=== PATIENT | female | born 1955 | race Caucasian/White ===

== ENCOUNTER 2022-09-02 00:12 | Observation (INO) | payer MEDICARE, OTHER ==
[~2022-09-02] VITALS: Ht 165.1 cm; Wt 99.8 kg
[2022-09-02 00:39] LABS: POTASSIUM 4.1 mmol/L (3.5-5.1)
[2022-09-02 00:44] LABS: ALBUMIN 3.6 g/dL (3.5-5.0); TOTAL PROTEIN, SERUM 7.2 g/dL (6.0-8.3)
[2022-09-02 00:46] LABS: HEMATOCRIT 32.3 % (36-48); MEAN CORPUSCULAR HEMOGLOBIN 27.6 pg (27.0-33.0); MEAN CORPUSCULAR HGB CONC 31.3 g/dL (32.0-36.0); MEAN CORPUSCULAR VOLUME 88.3 fL (79-99); RED BLOOD CELL COUNT(AUTO) 3.66 MIL/uL (4.00-5.50); RED CELL DISTRIBUTION WIDTH 14.1 % (11.0-15.5); WHITE BLOOD COUNT (AUTO) 19.6 K/uL (4.8-10.8)
[2022-09-02] MEDS ORDERED: PANTOPRAZOLE 40 MG/VIAL ONE (01:18)
[2022-09-02] MEDS: PANTOPRAZOLE 40MG INJ 80 MG in 0.9%NACL 100ML 100 ML IV SCH ×3 (01:22→23:27)
[2022-09-02 01:26] LABS: INR 0.95 (0.85-1.15); PROTHROMBIN TIME 10.4 SEC (9.6-11.6)
[2022-09-02 01:27] LABS: PARTIAL THROMBOPLASTIN TIME 21.9 SEC (26.3-35.5)
[2022-09-02] MEDS ORDERED: IOHEXOL 350 MG/ML 100ML INFUS..BTL IV ONE (01:30)
[2022-09-02] MEDS ORDERED: ONDANSETRON 4MG INJ IV PRN (04:00)
[2022-09-02] MEDS ORDERED: MORPHINE 4 MG SYG IV PRN (04:00)
[2022-09-02] MEDS ORDERED: MORPHINE 2 MG SYG IV PRN (04:00)
[2022-09-02] MEDS ORDERED: ACETAMINOPHEN 325 MG TAB PO PRN ×2 (04:00)
[2022-09-02] MEDS ORDERED: OCTREOTIDE ACETATE 1,250 MCG in 0.9% NACL 250ML 250 ML IV SCH (04:00)
[2022-09-02] MEDS ORDERED: OCTREOTIDE ACETATE 100 MCG/ML AMP IV ONE (04:00)
[2022-09-02 04:11] LABS: APPEARANCE,URINE CLEAR (CLEAR); BILIRUBIN,URINE NEGATIVE (NEGATIVE); COLOR,URINE COLORLESS (YELLOW); GLUCOSE, URINE (UA) NEGATIVE (NEGATIVE); KETONES,URINE NEGATIVE (NEGATIVE); LEUKOCYTE ESTERASE ,URINE NEGATIVE Leu/uL (NEGATIVE); NITRATE,URINE NEGATIVE (NEGATIVE); OCCULT BLOOD,URINE NEGATIVE (NEGATIVE); PH,URINE 5.5 (5.0-8.0); PROTEIN,URINE 20 mg/dL (NEGATIVE); UROBILINOGEN,URINE 0.2 mg/dL (0.2-1.0)
[2022-09-02] MEDS ORDERED: OCTREOTIDE ACETATE 200 MCG/ML 5 ML VIAL ONE (04:20)
[2022-09-02] MEDS: 0.9%NACL 1000ML 1,000 ML IV SCH ×2 (04:49→20:40)
[2022-09-02] MEDS: ZOSYN 3.375GM +NS 50ML IVPB SCH ×3 (04:50→20:37)
[2022-09-02] MEDS: 0.9%NACL 50ML IV SCH ×3 (04:50→20:37)
[2022-09-02] MEDS ORDERED: ZOSYN 3.375GM+NS 50ML 50 ML IVPB SCH (05:00)
[2022-09-02 05:17] LABS: BACTERIA,URINE None Seen /HPF (None Seen); RBC,URINE 0-1 /HPF (0-1); SQUAMOUS EPITHELIAL CELL,UR Rare /HPF (0-2)
[2022-09-02 10:17] LABS: HEMATOCRIT 29.6 % (36-48)
[2022-09-02 15:20] VITALS: BP 146/78
[2022-09-02 16:55] LABS: HEMATOCRIT 27.1 % (36-48)
[2022-09-02 20:08] VITALS: BP 115/67
[2022-09-02 23:23] LABS: HEMATOCRIT 24.7 % (36-48)
[2022-09-03] VITALS (20 sets, daily range): BP systolic 110–149; BP diastolic 58–87
[2022-09-03] MEDS: ZOSYN 3.375GM +NS 50ML IVPB SCH ×2 (05:01→12:10)
[2022-09-03] MEDS: 0.9%NACL 50ML IV SCH ×2 (05:01→12:10)
[2022-09-03 05:06] LABS: BASOPHILS % (AUTO) 1.1 % (0.0-5.0); EOSINOPHILS % (AUTO) 1.1 % (0.0-8.0); HEMATOCRIT 23.7 % (36-48); LYMPHOCYTES % (AUTO) 31.1 % (21.0-51.0); MEAN CORPUSCULAR HEMOGLOBIN 27.5 pg (27.0-33.0); MEAN CORPUSCULAR HGB CONC 30.8 g/dL (32.0-36.0); MEAN CORPUSCULAR VOLUME 89.4 fL (79-99); MONOCYTES % (AUTO) 5.3 % (3.0-13.0); NEUTROPHILS % (AUTO) 60.8 % (40.0-77.0); PLATELET COUNT (AUTO) 303 K/uL (130-400); RED BLOOD CELL COUNT(AUTO) 2.65 MIL/uL (4.00-5.50); RED CELL DISTRIBUTION WIDTH 14.6 % (11.0-15.5); WHITE BLOOD COUNT (AUTO) 10.6 K/uL (4.8-10.8)
[2022-09-03 05:10] LABS: CARBON DIOXIDE 26 mmol/L (21-32); CHLORIDE 107 mmol/L (101-111); CREATININE 0.9 mg/dL (0.5-1.5); GLOMERULAR FILTR. RATE CALC 71 mL/min (>90); GLUCOSE,RANDOM 104 mg/dL (70-105); PHOSPHORUS 2.5 mg/dL (2.5-4.9); POTASSIUM 4.3 mmol/L (3.5-5.1); SODIUM SERUM 138 mmol/L (136-145); UREA NITROGEN, BLOOD 25 mg/dL (7-18)
[2022-09-03 05:13] LABS: % IRON SATURATION 8.9 % (22-44)
[2022-09-03 05:17] LABS: CRP QUANTITATIVE < 2.00 mg/L (0.00-9.0)
[2022-09-03] MEDS: PANTOPRAZOLE 40MG INJ 80 MG in 0.9%NACL 100ML 100 ML IV SCH (08:53)
[2022-09-03] MEDS ORDERED: LIDOCAINE PF 100MG/5ML (2%) SYRINGE 5ML ONE (11:14)
[2022-09-03] MEDS ORDERED: PROPOFOL 10 MG/ML 20ML VIAL IV ONE (11:14)
[2022-09-03] MEDS ORDERED: 0.9%NACL 1000ML 1,000 ML IV ONE (12:32)
[2022-09-03] MEDS ORDERED: CARAL PO (12:59)
[2022-09-03] MEDS ORDERED: PANT40TA54 PO (12:59)
[2022-09-03] MEDS ORDERED: PANTOPRAZOLE 40 MG TAB DR PO SCH ×3 (13:00→21:00)
[2022-09-03] MEDS ORDERED: SUCRALFATE 1 GM TABLET PO SCH ×2 (13:00→16:30)
== END 2022-09-03 18:22 | disposition home or self-care (01) ==
LOC: EDH 00:12 → EDHIP 03:39 → INTOOBSV 03:39 → 4AH 15:48
PROVIDERS: ADMIT Internal Medicine; ATTEND Internal Medicine
DX: K92.2 Gastrointestinal hemorrhage, unspecified (principal); Z20.822 Contact with and (suspected) exposure to COVID-19; R65.10 Systemic inflammatory response syndrome (SIRS) of non-infectious origin without acute organ dysfunction; D72.829 Elevated white blood cell count, unspecified; K22.70 Barrett's esophagus without dysplasia; E66.01 Morbid (severe) obesity due to excess calories; N39.0 Urinary tract infection, site not specified; K21.9 Gastro-esophageal reflux disease without esophagitis; D64.9 Anemia, unspecified; Z68.36 Body mass index [BMI] 36.0-36.9, adult; Z79.82 Long term (current) use of aspirin; Z90.710 Acquired absence of both cervix and uterus; Z79.899 Other long term (current) drug therapy; Z98.890 Other specified postprocedural states
CPT/HCPCS: 96376; 96365; 96366 ×5; 96367; 96368; 99285; 80053; 85027; 85610; 85730; 85014 ×3; 85018 ×3; 86850; 86900; 86901; 87040 ×2; 87088; 83605; 82270; 81001; 36415 ×2; 87635; 74177; 93005; 84145 ×2; 83036; 83540; 83550; 83735; 84100; 80048; 85025; 85651; 86140; 88305; 88342; 43239; J2405; J2354 ×4; J2543 ×5; C9113 ×3; J7050; Q9967; G0378 ×2; J7030 ×2; J2001; J2704; A4620; A4215; A4223; A4222; A4216; A4606